=== PATIENT | male | born 1945 | race Caucasian/White ===

== ENCOUNTER → 2020-11-15 | Outpatient (CLI) | payer MEDICARE ==
--- NOTE | 2020-11-15 15:11 | CT ---
EXAMINATION TYPE: CT pelvis w con DATE OF EXAM: 11/15/2020 COMPARISON: None. HISTORY: Right inguinal hernia per order. Pain and swelling [address] DLP: 973 mGycm Automated exposure control for dose reduction was used. CONTRAST: CT pelvis Performed with oral and with IV Contrast, patient injected with 80ml mL of Isovue 300. FINDINGS: Mild to moderately distended bladder. No suspicious bowel dilatation. Prostate gland upper limits of normal in size. Right-sided inferior pelvic phlebolith. No free pelvic fluid. Few diverticula in the sigmoid colon. No free air. No suspicious hernia or adenopathy identified bilaterally. Multiple bulk in the bilateral thigh symme tric and thought within normal limits. Moderate axial joint space loss with mild to moderate acetabul ar spurring of both hips fairly symmetric in appearance. Severe disc space narrowing with endplate sc lerosis and moderate to severe anterior spurring L5-S1 level. IMPRESSION: As above.
== END | disposition home or self-care (01) ==
LOC: RADCTMAIN 12:47
PROVIDERS: ATTEND Surgery
DX: K57.30 Diverticulosis of large intestine without perforation or abscess without bleeding (principal); N32.89 Other specified disorders of bladder; I87.8 Other specified disorders of veins
CPT/HCPCS: 82565; 84520; 72193; 36415; Q9967